=== PATIENT | female | born 1990 | race Caucasian/White ===

== ENCOUNTER 2020-10-29 08:00 | Outpatient (RCR) | payer OTHER, SELFPAY ==
[2015-03-29 00:12] VITALS: BMI 26.4
== END 2020-12-03 23:59 ==
LOC: IMMUN 08:00
PROVIDERS: PCP Family Medicine; Referring Provider Family Medicine; Visit Provider Family Medicine
DX: Z23 Encounter for immunization (principal)
CPT/HCPCS: 0001A; 91300